=== PATIENT | male | born 1945 | race African-American/Black ===

== ENCOUNTER → 2017-11-03 | Outpatient (CLI) | payer MEDICARE, OTHER ==
--- NOTE | 2017-11-03 10:44 | RADIOLOGY REPORT (SQ) ---
EXAM DESCRIPTION: U/S ABDOMEN COMPLETE W/DOPPLER COMPLETED DATE/TIME: 11/03/2017 10:27 am REASON FOR STUDY: ABD DISTENSION (GASEOUS) (R14.0), CKD (N18.9) R14.0 ABDOMINAL DISTENSION (GASEOUS ) N18.9 CHRONIC KIDNEY DISEASE, UNSPECIFIED COMPARISON: None. TECHNIQUE: Dynamic and static grayscale images acquired of the abdomen and recorded on PACS. Additio nal selected color Doppler and spectral images recorded. LIMITATIONS: Overlying bowel gas. FINDINGS: PANCREAS: No masses. Visualized pancreatic duct normal caliber. LIVER: Echotexture is coarse with increased echogenicity consistent with fatty infiltration. LIVER VASCULATURE: Normal directional flow of the main portal vein and hepatic veins. GALLBLADDER: No stones. Normal wall thickness. No pericholecystic fluid. ULTRASOUND-DETECTED LUGO'S SIGN: Negative. INTRAHEPATIC DUCTS AND COMMON DUCT: CBD and intrahepatic ducts normal caliber. No filling defects. INFERIOR VENA CAVA: Normal flow. AORTA: No aneurysm. RIGHT KIDNEY: Poorly visualized. LEFT KIDNEY: 12.1 cm. Increased cortical echotexture. 2 cm cyst. No hydronephrosis. SPLEEN:Normal size. No solid masses. PERITONEAL AND PLEURAL SPACES: No ascites or effusions. OTHER: No other significant finding. IMPRESSION: No acute findings. Medical renal disease. TECHNICAL DOCUMENTATION: JOB ID: [id number] [employer]- All Rights Reserved
--- NOTE | 2017-11-03 10:55 | RADIOLOGY REPORT (SQ) ---
EXAM DESCRIPTION: U/S NON-OB PELVIS LTD W/O DOP COMPLETED DATE/TIME: 11/03/2017 10:27 am REASON FOR STUDY: ABD DISTENSION (GASEOUS) (R14.0), CKD (N18.9) COMPARISON: None. TECHNIQUE: Sonographic sections through the pelvis were obtained in varying positions LIMITATIONS: None. FINDINGS: There is some prominence of prostate gland with a prostatic impression on the bladder base . No discrete solid or cystic masses are identified. IMPRESSION: There is some prominence of the prostate gland with a prostatic impression on the bladde r base. No discrete solid or cystic masses are identified. If further workup is deemed clinically w arranted I would recommend CT. TECHNICAL DOCUMENTATION: JOB ID: [id number] [employer]- All Rights Reserved
== END ==
LOC: RAD 09:19
PROVIDERS: ATTEND Family Medicine
DX: R14.0 Abdominal distension (gaseous) (principal); N18.9 Chronic kidney disease, unspecified
CPT/HCPCS: 76700; 76857; 93976

== ENCOUNTER → 2018-02-10 | Outpatient (CLI) | payer OTHER ==
--- NOTE | 2018-02-10 12:58 | RADIOLOGY REPORT (SQ) ---
EXAM DESCRIPTION: U/S RETROPERITON (RENAL/AORTA) COMPLETED DATE/TIME: 02/10/2018 11:26 am REASON FOR STUDY: CKD (N18.1) N18.1 CHRONIC KIDNEY DISEASE, STAGE 1 COMPARISON: Renal ultrasound 05/02/2009 CT angio chest 06/24/2015 Abdominal ultrasound 11/03/2017 TECHNIQUE: Dynamic and static grayscale images acquired of the kidneys and bladder and recorded on P ACS. Additional selected color Doppler and spectral images recorded. LIMITATIONS: None. FINDINGS: RIGHT KIDNEY: The right kidney is echogenic and very small, difficult to visualize today b y ultrasound. On previous ultrasound 11/03/2017 and 05/02/2009, the right kidney is barely discernible from the retroperitoneal fat, measuring about 6.7 cm in length. LEFT KIDNEY: Normal size, 11 cm in length. Normal echogenicity. No solid or suspicious masses. 2.3 cm left midpole renal cortical cyst. No hydronephrosis. No calcifications. BLADDER: There is a 2 cm ureterocele along the distal right ureteral insertion into the bladder. OTHER FINDINGS: No other significant finding. IMPRESSION: Right kidney not well seen by ultrasound today. Previous exams demonstrated that the ri ght kidney is small and echogenic, similar between 2008 and 2017 ultrasound exams. Normal size left kidney without hydronephrosis or hydroureter. 2 cm lesion at the right bladder trigone, may represent a right ureterocele. Bladder mucosal neoplas m could not be excluded. TECHNICAL DOCUMENTATION: JOB ID: [id number] [employer]- All Rights Reserved Reading location - IP/workstation name: [email or web address]
== END ==
LOC: RAD 10:50
PROVIDERS: ATTEND Family Medicine
DX: N18.1 Chronic kidney disease, stage 1 (principal)
CPT/HCPCS: 76770

== ENCOUNTER → 2020-05-27 | Outpatient (CLI) | payer OTHER ==
--- NOTE | 2020-05-27 15:02 | RADIOLOGY REPORT (SQ) ---
EXAM DESCRIPTION: U/S RETROPERITON (RENAL/AORTA) IMAGES COMPLETED DATE/TIME: 05/27/2020 1:28 pm REASON FOR STUDY: N18.9 CHRONIC KIDNEY DISEASE, UNSPECIFIED N18.9 CHRONIC KIDNEY DISEASE, UNSPECIFI ED COMPARISON: 02/10/2018 TECHNIQUE: Dynamic and static grayscale images acquired of the kidneys and bladder and recorded on P ACS. Additional selected color Doppler and spectral images recorded. LIMITATIONS: None. FINDINGS: RIGHT KIDNEY: 4.1 cm. Increased cortical echogenicity. No solid or suspicious masses. No hydronephrosis. No calcifications. LEFT KIDNEY: 12.0 cm. Increased cortical echogenicity. 3 cm upper pole cyst. No solid or suspici ous masses. No hydronephrosis. No calcifications. BLADDER: Unchanged right ureterocele. OTHER: No other significant finding. IMPRESSION: CHRONIC MEDICAL RENAL DISEASE. RIGHT RENAL ATROPHY. NO HYDRONEPHROSIS. TECHNICAL DOCUMENTATION: JOB ID: [id number] [employer]- All Rights Reserved Reading location - IP/workstation name: [email or web address]
== END ==
LOC: RAD 12:38
PROVIDERS: ATTEND Family Medicine
DX: N18.9 Chronic kidney disease, unspecified (principal)
CPT/HCPCS: 76770